=== PATIENT | male | born 1970 | race African-American/Black ===

== ENCOUNTER 2016-10-24 10:04 | Emergency (ER) | payer SELFPAY ==
[~2016-10-24] VITALS: Ht 172.7 cm; Wt 105.5 kg
[2016-10-24] MEDS ORDERED: PERCOCET 5/31 TABLET PO (12:13)
[2016-10-24] MEDS ORDERED: VALTREX1000 MG PO (12:13)
[2016-10-24 12:19] VITALS: BP 136/89
== END 2016-10-24 13:32 | disposition home or self-care (01) ==
LOC: EME 10:04
DX: B02.9 Zoster without complications (principal)
CPT/HCPCS: 99281; 99282